=== PATIENT | male | born 1945 | race American Indian/Alaskan Native ===

== ENCOUNTER 2017-12-23 11:02 | Emergency (ER) | payer MEDICARE, OTHER ==
[2017-12-23 11:18] VITALS: BP 137/81
[2017-12-23] MEDS ORDERED: XYLOCAINE 1% MPF 5 mL ONE (13:59)
[2017-12-23] MEDS ORDERED: XYLOCAINE 1% MPF 5 mL INFILTRATI ONE (14:46)
[2017-12-23] MEDS ORDERED: XYLOCAINE 2% UROJET UR ONE (15:00)
--- NOTE | 2017-12-23 15:16 | Emergency Department Report ---
Abscess Boil HPI - HPI Chief Complaint: Skin/Abscess/Foreign Body Stated Complaint: BOIL Time Seen by Provider: 12/23/17 13:16 Duration: >1 Week (2 years) Location: Back (mid back) History: Yes Pain, Yes Previous History (had a boil a couple years prior in same area, drained by [facility]), No Fever, No Purulent Drainage, No Numbness, No Foreign Body, No Insect Bite HPI: This is a 72 y.o. male that presents with a painful abscess mid upper back for 2 years. He is being treated by dermatology at [facility]. They are doing injections to area, unsure of name. They told him it is an abscess but they can' t open it in the office. He have an appointment at the main [facility] on 01/06/18 for consultation to do an I&D. Patient reports he can't take another day of pain. It is red, painful, and swollen. Denies discharge, numbness/ tingling, fever, and puritis. Home Medications: Previous Rx's Medication Instructions Recorded Last Taken Type Sulfamethoxazole/Trimethoprim 1 each PO BID 10 Days #20 tablet 12/23/17 Unknown Rx [Bactrim DS TAB] Allergies/Adverse Reactions: Allergies Allergy/AdvReac Type Severity Reaction Status Date / Time codeine Allergy Unknown Verified 12/23/17 11:13 ED Review of Systems ROS: Stated complaint: BOIL Other details as noted in HPI Constitutional: denies: chills, fever, malaise Respiratory: denies: cough, shortness of breath, wheezing Cardiovascular: denies: chest pain, palpitations Gastrointestinal: denies: abdominal pain, nausea, diarrhea Musculoskeletal: denies: back pain, joint swelling, arthralgia Skin: other (abscess to mid back). denies: rash, lesions Neurological: denies: headache, weakness, paresthesias ED Past Medical Hx - Past Medical History Hx Diabetes: Yes Additional medical history: high cholesterol, chronic back, hip pain - Surgical History Past Surgical History?: No - Social History Smoking Status: Never Smoker Substance Use Type: None - Medications Home Medications: Home Medications Medication Instructions Recorded Confirmed Last Taken Type Sulfamethoxazole/Trimethoprim 1 each PO BID 10 Days #20 tablet 12/23/17 Unknown Rx [Bactrim DS TAB] ED Abscess Boil Physical Exam - Exam General: Vital signs noted. No distress. Alert and acting appropriately. Size: >5 cm Exam: Yes Tenderness, Yes Fluctuance, Yes Surrounding Cellulites/Erythema, Yes Normal Neurologic Exam, Yes Normal Circulation, No Lymphangitis, No Crepitation , No Heart Murmur I & D Note - I & D Note I & D Note: The area was prepared and draped in the usual, sterile manner. The site was anesthetized with 3 cc of 1% lidocaine w/o epinephrine. A linear incision along the local skin lines was made and the purulent material expressed. The abcess was explored thoroughly and sequestered pockets were opened. Bleeding was minimal. Packing: with iodoform. The patient tolerated the procedure well without complications. Standard post-procedure care is explained and return precautions are given. ED Course Vital Signs 12/23/17 11:13 Temperature 98.4 F Pulse Rate 89 Respiratory 16 Rate Blood Pressure 137/81 O2 Sat by Pulse 97 Oximetry Critical care attestation.: If time is entered above; I have spent that time in minutes in the direct care of this critically ill patient, excluding procedure time. ED Medical Decision Making - Medical Decision Making This is a 72 y.o. male presents with abscess to mid upper back for 2 years. Patient examined by me. 5-6 cm flatulence abscess, with cellulitis to surrounding area. Patient is non-toxic appearing and stable. Physical examination is susceptible of abscess with cellulites of back excluding scapular region. Performed I&D. Ordered culture, pending results. Discharged home for outpatient treatment with bactrim. Discussed ER care plan with patient. Patient agreed with plan. F/U with PCP. ED Disposition Clinical Impression: Abscess of upper back excluding scapular region Disposition: DC-01 TO HOME OR SELFCARE Is pt being admited?: No Does the pt Need Aspirin: No Condition: Stable Instructions: Abscess Incision and Drainage (ED), Abscess (ED) Additional Instructions: Complete bactrim DS for the full 10 days as prescribed. Return to ER in 3 days for removal of packing. Follow up with Primary Care Provider in 24-72. Prescriptions: Sulfamethoxazole/Trimethoprim [Bactrim DS TAB] 1 each PO BID 10 Days #20 tablet Referrals: [facility] [Outside] - 3-5 Days Wound Care & [facility] [Outside] - 3-5 Days Time of Disposition: 15:31 Print Language: CITIZ[place] OF [place]
== END 2017-12-23 16:01 | disposition home or self-care (01) ==
LOC: ED 11:02
DX: L02.212 Cutaneous abscess of back [any part, except buttock and flank] (principal); E11.9 Type 2 diabetes mellitus without complications; E78.00 Pure hypercholesterolemia, unspecified; G89.29 Other chronic pain
CPT/HCPCS: 87116

== ENCOUNTER 2017-12-26 06:52 | Emergency (ER) | payer MEDICARE ==
[2017-12-26 06:58] VITALS: BP 152/87
--- NOTE | 2017-12-26 08:18 | Emergency Department Report ---
- General Chief Complaint: Laceration/Recheck/Suture Stated Complaint: PACKING REMOVAL Source: patient, family Mode of arrival: Ambulatory Limitations: No Limitations - History of Present Illness Initial Comments: 72-year-old -[place] male comes in for repacking of his sebaceous wound on his back. Patient reports that he was here Tuesday and had to sebaceous abscess drained and packed. Patient reports that he is currently taking his Bactrim as prescribed. He reports no fever no chills reports that his change in his bandage daily. -: days(s) (3) Location: back - Related Data Previous Rx's Medication Instructions Recorded Last Taken Type Sulfamethoxazole/Trimethoprim 1 each PO BID 10 Days #20 tablet 12/23/17 Unknown Rx [Bactrim DS TAB] Allergies Allergy/AdvReac Type Severity Reaction Status Date / Time codeine Allergy Unknown Verified 12/23/17 11:13 ED Review of Systems ROS: Stated complaint: PACKING REMOVAL Other details as noted in HPI Constitutional: denies: chills, fever Eyes: denies: eye pain, eye discharge, vision change ENT: denies: ear pain, throat pain Respiratory: denies: cough, shortness of breath, wheezing Cardiovascular: denies: chest pain, palpitations Endocrine: no symptoms reported Gastrointestinal: denies: abdominal pain, nausea, diarrhea Genitourinary: denies: urgency, dysuria Musculoskeletal: denies: back pain, joint swelling, arthralgia Skin: denies: rash, lesions Neurological: denies: headache, weakness, paresthesias Psychiatric: denies: anxiety, depression Hematological/Lymphatic: denies: easy bleeding, easy bruising ED Past Medical Hx - Past Medical History Previous Medical History?: Yes Hx Diabetes: Yes Additional medical history: high cholesterol, chronic back, hip pain - Surgical History Past Surgical History?: Yes Additional Surgical History: D&C of abscess - Social History Smoking Status: Former Smoker Substance Use Type: None - Medications Home Medications: Home Medications Medication Instructions Recorded Confirmed Last Taken Type Sulfamethoxazole/Trimethoprim 1 each PO BID 10 Days #20 tablet 12/23/17 Unknown Rx [Bactrim DS TAB] ED Physical Exam - General Limitations: No Limitations - Respiratory Respiratory exam: Present: normal lung sounds bilaterally. Absent: respiratory distress - Cardiovascular Cardiovascular Exam: Present: regular rate, normal rhythm. Absent: systolic murmur, diastolic murmur, rubs, gallop - Neurological Exam Neurological exam: Present: alert, oriented X3 - Psychiatric Psychiatric exam: Present: normal affect, normal mood - Skin Skin exam: Present: warm, dry, intact, other (site is clean dry was able to remove the packing nonpurulent discharge on the packing. Able to replace xylophone one fourth about 2 feet.). Absent: erythema ED Course Vital Signs 12/26/17 12/26/17 06:54 06:55 Temperature 98.0 F 98 F Pulse Rate 86 92 H Respiratory 18 18 Rate Blood Pressure 152/87 152/87 O2 Sat by Pulse 97 97 Oximetry ED Medical Decision Making - Medical Decision Making Patient has been evaluated by this provider fast track. Was able to remove O packing and repacked the wound approximately 2 feet of packing material. I discussed the patient to continue with antibiotics as prescribed. I discussed with patient to follow-up in 3 days for packing removal healthy at that time we would not need to repack. Discussed with patient that healing will come from inside to out. Discussed with patient to follow up sooner if he presents with any fever chills nausea vomiting site becomes very erythematous swelling or purulent discharge patient verbalized understanding Critical care attestation.: If time is entered above; I have spent that time in minutes in the direct care of this critically ill patient, excluding procedure time. ED Disposition Clinical Impression: Encounter for wound re-check Disposition: DC-01 TO HOME OR SELFCARE Is pt being admited?: No Does the pt Need Aspirin: No Condition: Stable Additional Instructions: Continue with antibiotics as prescribed. Please change the bandage daily. Follow-up in 3 days for packing removal and recheck of wound. Please return sooner if you present with any fever chills nausea vomiting any purulent discharge. Referrals: PRIMARY CARE, [Primary Care Provider] - 3-5 Days
== END 2017-12-26 08:30 | disposition home or self-care (01) ==
LOC: ED 06:52
DX: Z48.01 Encounter for change or removal of surgical wound dressing (principal); E11.9 Type 2 diabetes mellitus without complications; E78.00 Pure hypercholesterolemia, unspecified; G89.29 Other chronic pain; Z87.891 Personal history of nicotine dependence; Z88.5 Allergy status to narcotic agent
CPT/HCPCS: 99283

== ENCOUNTER 2017-12-30 11:20 | Emergency (ER) | payer MEDICARE, OTHER ==
[2017-12-30 11:53] VITALS: BP 155/91
--- NOTE | 2017-12-30 15:08 | Emergency Department Report ---
Chief Complaint: Laceration/Recheck/Suture Stated Complaint: PACKING REMOVAL Time Seen by Provider: 12/30/17 13:46 - HPI History of Present Illness: Patient is a 72-year-old male who presents to ED for packing removal and wound check Pt denies any fever, chills or any other problems. Patient states he isn't taking his antibiotics and pain meds as prescribed. - ROS Review of Systems: Denies all of the symptoms - Exam Vital Signs: Vital Signs 12/30/17 11:48 Temperature 98.6 F Pulse Rate 94 H Blood Pressure 155/91 O2 Sat by Pulse 98 Oximetry Physical Exam: GENERAL: Alert and oriented x3, no apparent distress, Normal Gait, atraumatic. HEAD: Head is normocephalic and a-traumatic. LUNGS: Symetrical with respiration, No wheezing, no rales or crackles, CTAB. SKIN: Warm and dry, No lesions, No ulceration or induration present. wound location on upper mid back, no pus drainage seen MSE screening note: Focused history and physical exam performed. Due to findings the following was ordered: ED Medical Decision Making - Medical Decision Making 22-year-old male presents [id number] removal Packing was removed without any problems Wound was flushed out with 60 mL of normal saline Steri-Strips were applied to wound as it was gaping open. Light dressing applied to wound Wound instructions is given to patient. states he has an appointment at the [place] to see the mixer operator hot metal on January 06. I discussed the patient to keep this appointment ED Disposition for MSE Clinical Impression: Encounter for wound re-check Disposition: DC-01 TO HOME OR SELFCARE Is pt being admited?: No Does the pt Need Aspirin: No Condition: Stable Instructions: Acute Wound Care (ED) Additional Instructions: Make sure to follow up with the primary care physician as discussed. Take all your medications as you've been prescribed. If you have any worsening symptoms or develop new symptoms please return to ED immediately. Referrals: GEOFFREY GOMEZ MD [Primary Care Provider] - 3-5 Days Forms: Accompanied Note, Work/School Release Form(ED) Time of Disposition: 15:08
== END 2017-12-30 15:15 | disposition home or self-care (01) ==
LOC: ED 11:20
DX: Z48.00 Encounter for change or removal of nonsurgical wound dressing (principal); Z88.6 Allergy status to analgesic agent
CPT/HCPCS: 99282

== ENCOUNTER 2022-04-09 13:55 | Emergency (ER) | payer MEDICARE ==
--- NOTE | 2022-04-09 15:26 | Emergency Department Report ---
ED Altered Mental Status HPI - General Chief Complaint: Altered Mental Status Stated Complaint: AMS Time Seen by Provider: 04/09/22 15:09 Source: EMS Mode of arrival: Stretcher Limitations: Altered Mental Status - History of Present Illness Initial Comments: 77 yo Roscoe M brought in by EMS with concern for AMS which patient denies. Pt reports that his was having a boyfriend over and they were using his credit card without his authorization. He ends up cancelling the credit card and believed the was not happy about that action. The on the other hand reports that time to time patient get confused but it was coming too frequent at this time. According to patient's that was spoken to by his bedside nurse who told her that today's episode happened while they were going to the restaurant and at the post office. He just randomly became confused. No other modifying or associated factors reported. - Related Data Previous Rx's Medication Instructions Recorded Last Taken Type Sulfamethoxazole/Trimethoprim 1 each PO BID 10 Days #20 tablet 12/23/17 Unknown Rx [Bactrim DS TAB] Allergies Allergy/AdvReac Type Severity Reaction Status Date / Time codeine Allergy Unknown Verified 04/09/22 14:16 ED Review of Systems ROS: Stated complaint: AMS Other details as noted in HPI Comment: All other systems reviewed and negative Neurological: other (AMS and confusion) ED Past Medical Hx - Past Medical History Previous Medical History?: Yes Hx Hypertension: Yes Hx Diabetes: Yes Additional medical history: high cholesterol, chronic back, hip pain, glaucoma - Surgical History Additional Surgical History: D&C of abscess - Social History Smoking Status: Never Smoker - Medications Home Medications: Home Medications Medication Instructions Recorded Confirmed Last Taken Type Sulfamethoxazole/Trimethoprim 1 each PO BID 10 Days #20 tablet 12/23/17 Unknown Rx [Bactrim DS TAB] ED Physical Exam - General Limitations: Altered Mental Status General appearance: alert, in no apparent distress - Head Head exam: Present: normal inspection - Eye Eye exam: Present: normal appearance Pupils: Present: normal accommodation - ENT ENT exam: Present: normal exam, normal orophraynx, mucous membranes dry - Neck Neck exam: Present: normal inspection, full ROM. Absent: tenderness - Respiratory Respiratory exam: Present: normal lung sounds bilaterally. Absent: respiratory distress, accessory muscle use - Cardiovascular Cardiovascular Exam: Present: regular rate, normal rhythm, normal heart sounds - GI/Abdominal GI/Abdominal exam: Present: soft, normal bowel sounds. Absent: distended, tend erness - Extremities Exam Extremities exam: Present: normal inspection, full ROM, normal capillary refill. Absent: tenderness - Back Exam Back exam: Present: normal inspection - Neurological Exam Neurological exam: Present: alert, oriented X3 - Psychiatric Psychiatric exam: Present: normal affect, normal mood - Skin Skin exam: Present: warm, normal color ED Course Vital Signs 04/09/22 04/09/22 04/09/22 14:11 14:25 14:30 Temperature 98.0 F Pulse Rate 126 H 96 H Respiratory 16 16 Rate Blood Pressure 182/93 Blood Pressure 178/100 [Left] O2 Sat by Pulse 95 98 97 Oximetry 04/09/22 04/09/22 04/09/22 14:46 15:00 15:10 Temperature Pulse Rate 107 H 91 H Respiratory 17 18 Rate Blood Pressure 182/93 195/101 Blood Pressure [Left] O2 Sat by Pulse 100 97 100 Oximetry 04/09/22 04/09/22 04/09/22 15:16 15:30 15:46 Temperature Pulse Rate 89 92 H 91 H Respiratory 17 16 11 L Rate Blood Pressure 182/93 158/87 158/87 Blood Pressure [Left] O2 Sat by Pulse 97 98 98 Oximetry 04/09/22 04/09/22 04/09/22 16:40 16:46 17:00 Temperature Pulse Rate 95 H 92 H 79 Respiratory 20 13 17 Rate Blood Pressure Blood Pressure [Left] O2 Sat by Pulse Oximetry 04/09/22 04/09/22 04/09/22 17:16 17:30 17:46 Temperature Pulse Rate 77 80 77 Respiratory 14 9 L 13 Rate Blood Pressure 158/87 158/87 158/87 Blood Pressure [Left] O2 Sat by Pulse Oximetry 04/09/22 18:00 Temperature Pulse Rate Respiratory 11 L Rate Blood Pressure 158/87 Blood Pressure [Left] O2 Sat by Pulse Oximetry - Reevaluation(s) Reevaluation #1: 04/09/22 15:27 here with AMS but noted with without any confusion at this time-- however r eports some intermittent confusion - which could be delirium but not limited to microvascular angiopathy, so to rule those out will order routine CBC, CMP and UA with CT head -- will also consult the case management for disposition. Reevaluation #2: 04/09/22 21:[address] Bernard while waiting for Mental health evaluation at 2100 - Lab Data Result diagrams: 04/09/22 15:22 04/09/22 15:22 Lab Results 04/09/22 04/09/22 04/09/22 Range/Units 15:22 15:22 15:22 WBC 9.1 (4.5-11.0) K/mm3 RBC 5.27 H (3.65-5.03) M/mm3 Hgb 14.7 (11.8-15.2) gm/dl Hct 43.0 (35.5-45.6) % MCV 82 L (84-94) fl MCH 28 (28-32) pg MCHC 34 (32-34) % RDW 15.5 H (13.2-15.2) % Plt Count 185 (140-440) K/mm3 Lymph % (Auto) 9.3 L (13.4-35.0) % [place] % (Auto) 3.9 (0.0-7.3) % Eos % (Auto) 0.2 (0.0-4.3) % Baso % (Auto) 0.1 (0.0-1.8) % Lymph # (Auto) 0.8 L (1.2-5.4) K/mm3 [place] # (Auto) 0.4 (0.0-0.8) K/mm3 Eos # (Auto) 0.0 (0.0-0.4) K/mm3 Baso # (Auto) 0.0 (0.0-0.1) K/mm3 Seg Neutrophils % 86.5 H (40.0-70.0) % Seg Neutrophils # 7.9 H (1.8-7.7) K/mm3 PT 13.7 (12.2-14.9) Sec. INR 0.95 (0.87-1.13) APTT 37.5 H (24.2-36.6) Sec. Sodium 141 (137-145) mmol/L Potassium 4.4 (3.6-5.0) mmol/L Chloride 104.3 (98-107) mmol/L Carbon Dioxide 28 (22-30) mmol/L Anion Gap 13 mmol/L BUN 16 (9-20) mg/dL Creatinine 1.1 (0.8-1.3) mg/dL Estimated GFR > 60 ml/min BUN/Creatinine Ratio 15 % Glucose 112 H (75-100) mg/dL Lactic Acid (0.7-2.0) mmol/L Calcium 9.8 (8.4-10.2) mg/dL Total Bilirubin 0.50 (0.1-1.2) mg/dL AST 15 (5-40) units/L ALT 17 (7-56) units/L Alkaline Phosphatase 65 (35-129) units/L Ammonia (25-60) umol/L Total Protein 7.1 (6.3-8.2) g/dL Albumin 4.5 (3.9-5) g/dL Albumin/Globulin Ratio 1.7 % TSH (0.270-4.200) mlU/mL Free T4 (0.76-1.46) ng/dL Salicylates (2.8-20.0) mg/dL Urine Opiates Screen Urine Methadone Screen Acetaminophen (10.0-30.0) ug/mL Ur Barbiturates Screen Ur Phencyclidine Scrn Ur Amphetamines Screen U Benzodiazepines Scrn Urine Cocaine Screen U Marijuana (THC) Screen Drugs of Abuse Note 04/09/22 04/09/22 04/09/22 Range/Units 15:22 15:22 15:22 WBC (4.5-11.0) K/mm3 RBC (3.65-5.03) M/mm3 Hgb (11.8-15.2) gm/dl Hct (35.5-45.6) % MCV (84-94) fl MCH (28-32) pg MCHC (32-34) % RDW (13.2-15.2) % Plt Count (140-440) K/mm3 Lymph % (Auto) (13.4-35.0) % [place] % (Auto) (0.0-7.3) % Eos % (Auto) (0.0-4.3) % Baso % (Auto) (0.0-1.8) % Lymph # (Auto) (1.2-5.4) K/mm3 [place] # (Auto) (0.0-0.8) K/mm3 Eos # (Auto) (0.0-0.4) K/mm3 Baso # (Auto) (0.0-0.1) K/mm3 Seg Neutrophils % (40.0-70.0) % Seg Neutrophils # (1.8-7.7) K/mm3 PT (12.2-14.9) Sec. INR (0.87-1.13) APTT (24.2-36.6) Sec. Sodium (137-145) mmol/L Potassium (3.6-5.0) mmol/L Chloride (98-107) mmol/L Carbon Dioxide (22-30) mmol/L Anion Gap mmol/L BUN (9-20) mg/dL Creatinine (0.8-1.3) mg/dL Estimated GFR ml/min BUN/Creatinine Ratio % Glucose (75-100) mg/dL Lactic Acid 1.70 (0.7-2.0) mmol/L Calcium (8.4-10.2) mg/dL Total Bilirubin (0.1-1.2) mg/dL AST (5-40) units/L ALT (7-56) units/L Alkaline Phosphatase (35-129) units/L Ammonia (25-60) umol/L Total Protein (6.3-8.2) g/dL Albumin (3.9-5) g/dL Albumin/Globulin Ratio % TSH (0.270-4.200) mlU/mL Free T4 (0.76-1.46) ng/dL Salicylates < 0.3 L (2.8-20.0) mg/dL Urine Opiates Screen Urine Methadone Screen Acetaminophen 5.0 L (10.0-30.0) ug/mL Ur Barbiturates Screen Ur Phencyclidine Scrn Ur Amphetamines Screen U Benzodiazepines Scrn Urine Cocaine Screen U Marijuana (THC) Screen Drugs of Abuse Note 04/09/22 04/09/22 04/09/22 Range/Units 15:44 19:33 Unknown WBC (4.5-11.0) K/mm3 RBC (3.65-5.03) M/mm3 Hgb (11.8-15.2) gm/dl Hct (35.5-45.6) % MCV (84-94) fl MCH (28-32) pg MCHC (32-34) % RDW (13.2-15.2) % Plt Count (140-440) K/mm3 Lymph % (Auto) (13.4-35.0) % [place] % (Auto) (0.0-7.3) % Eos % (Auto) (0.0-4.3) % Baso % (Auto) (0.0-1.8) % Lymph # (Auto) (1.2-5.4) K/mm3 [place] # (Auto) (0.0-0.8) K/mm3 Eos # (Auto) (0.0-0.4) K/mm3 Baso # (Auto) (0.0-0.1) K/mm3 Seg Neutrophils % (40.0-70.0) % Seg Neutrophils # (1.8-7.7) K/mm3 PT (12.2-14.9) Sec. INR (0.87-1.13) APTT (24.2-36.6) Sec. Sodium (137-145) mmol/L Potassium (3.6-5.0) mmol/L Chloride (98-107) mmol/L Carbon Dioxide (22-30) mmol/L Anion Gap mmol/L BUN (9-20) mg/dL Creatinine (0.8-1.3) mg/dL Estimated GFR ml/min BUN/Creatinine Ratio % Glucose (75-100) mg/dL Lactic Acid (0.7-2.0) mmol/L Calcium (8.4-10.2) mg/dL Total Bilirubin (0.1-1.2) mg/dL AST (5-40) units/L ALT (7-56) units/L Alkaline Phosphatase (35-129) units/L Ammonia 26.0 (25-60) umol/L Total Protein (6.3-8.2) g/dL Albumin (3.9-5) g/dL Albumin/Globulin Ratio % TSH 2.070 (0.270-4.200) mlU/mL Free T4 1.13 (0.76-1.46) ng/dL Salicylates (2.8-20.0) mg/dL Urine Opiates Screen Negative Urine Methadone Screen Negative Acetaminophen (10.0-30.0) ug/mL Ur Barbiturates Screen Negative Ur Phencyclidine Scrn Negative Ur Amphetamines Screen Negative U Benzodiazepines Scrn Negative Urine Cocaine Screen Negative U Marijuana (THC) Screen Negative Drugs of Abuse Note Disclamer Critical care attestation.: If time is entered above; I have spent that time in minutes in the direct care of this critically ill patient, excluding procedure time. ED Disposition Clinical Impression: AMS (altered mental status) Qualifiers: Altered mental status type: unspecified Qualified Code(s): R41.82 - Altered mental status, unspecified Disposition: 30 STILL A PATIENT Is pt being admited?: No Does the pt Need Aspirin: No Condition: Stable
[2022-04-09 15:53] LABS: Basophils % (Auto) 0.1 % (0.0-1.8); Eosinophils % (Auto) 0.2 % (0.0-4.3); Hemoglobin 14.7 gm/dl (11.8-15.2); Lymphocytes # (Auto) 0.8 K/mm3 (1.2-5.4); Lymphocytes % (Auto) 9.3 % (13.4-35.0); Mean Corpuscular HGB Conc 34 % (32-34); Mean Corpuscular Volume 82 fl (84-94); Monocytes # (Auto) 0.4 K/mm3 (0.0-0.8); Monocytes % (Auto) 3.9 % (0.0-7.3); Platelet Count 185 K/mm3 (140-440); Red Blood Count 5.27 M/mm3 (3.65-5.03); Red Cell Distribution Width 15.5 % (13.2-15.2)
[2022-04-09 16:04] LABS: INR 0.95 (0.87-1.13)
[2022-04-09 16:05] LABS: Partial Thromboplastin Time 37.5 Sec. (24.2-36.6)
[2022-04-09 16:07] LABS: Alanine Aminotransferase 17 units/L (7-56); Albumin 4.5 g/dL (3.9-5); BUN/Creatinine Ratio 15; Blood Urea Nitrogen 16 mg/dL (9-20); Calcium 9.8 mg/dL (8.4-10.2); Hemolysis Index 2
--- NOTE | 2022-04-09 16:17 | Cat Scan Report ---
CT HEAD WITHOUT CONTRAST INDICATION / CLINICAL INFORMATION: Altered Mental Status. TECHNIQUE: All CT scans at this location are performed using CT dose reduction for ALARA by means of automated e xposure control. COMPARISON: None available. FINDINGS: HEMORRHAGE: No evidence of intracranial hemorrhage or extra-axial fluid collection. EXTRA-AXIAL SPACES: Cortical sulci and sylvian fissures are enlarged reflecting a degree of parenchym al volume loss which is within normal limits for the patient's age of 77 years. Basilar cisterns have an unremarkable appearance. VENTRICULAR SYSTEM: The third and lateral ventricles are enlarged reflecting presence of age related parenchymal volume loss. CEREBRAL PARENCHYMA: Periventricular and deep white matter lucency is observed. This is probably seco ndary to microvascular ischemic change. There is no indication of recent infarction. No areas of ence phalomalacia are identified. MIDLINE SHIFT OR HERNIATION: There is no mass effect. CEREBELLUM / BRAINSTEM: Brainstem has an unremarkable appearance. Age related cerebellar atrophy is n oted. MIDLINE STRUCTURES:Pituitary gland has an unremarkable appearance. No abnormalities are seen in the p ineal region. INTRACRANIAL VESSELS:Calcified atherosclerotic plaque is present along the course of the cavernous se gments of both internal carotid arteries. Similar findings are seen at the distal vertebral arteries. CRANIOCERVICAL JUNCTION:No significant abnormality. ORBITS: visualized portions of the orbits have an unremarkable appearance. SOFT TISSUES of HEAD: No significant abnormality. CALVARIUM: Evaluation of bone windows reveals no abnormalities. PARANASAL SINUSES / MASTOID AIR CELLS: Mucosal thickening is present at the base of the right maxilla ry sinus. Paranasal sinuses are otherwise free from inflammatory mucosal disease. Normal and symmetri maurice pneumatization of mastoid air cells is observed. IMPRESSION: 1. Age-related involutional changes of parenchymal volume loss and microvascular ischemia. 2. No acute intracranial abnormality. Signer Name: Lincoln Emerson MD Signed: 04/09/2022 4:12 PM Workstation Name: [id number]
[2022-04-09 18:38] LABS: Free T4 (Free Thyroxine) 1.13 ng/dL (0.76-1.46)
[2022-04-09 18:38] LABS: Amphetamine Screen,Urine Negative; Benzodiazepines Screen,Urine Negative; Cannabinoid Screen,Urine Negative; Cocaine Screen,Urine Negative; Methadone Screen,Urine Negative; Opiate Screen,Urine Negative
[2022-04-10 08:26] LABS: Bilirubin,Urine NEG (Negative); Blood,Urine NEG (Negative); Color,Urine Yellow (Yellow); Urobilinogen,Urine < 2.0 mg/dL (<2.0)
[2022-04-10 08:30] LABS: Bacteria,Urine 1+ /HPF (Negative); Mucus,Urine 3+ /HPF
--- NOTE | 2022-04-10 10:30 | Event Note ---
Date: 04/10/22 (@ 10:25 am) CTBS 2/2 patient 's reporting patient had a fall last night in the ER. Reportedly, the RN gave that in report to the oncoming nurse. However, no docvtor went in to see the patient. This happened long before my shift. Seeing pastient now after multiple emergent cases in the ER that took priority as patient was decriptively stable. Patient reporteldy here for AMS and was placed in psych without a UA being done or UTI ruled out as an organic cause. O: Gen: awake, alert, confused Head: normocephalic, atraumatic Ext: abrasion over L elbow and anterior L knee; full ROM without deformity in all extremities; pelvis stable Neuro: GCS 14/15 ([id number]); no gross CN palsiers; moving all extremities equally A: - possible fall - AMS: need to additionally rule out UTI P: - will order UA, CT head, CT cervical spine, XR of L elbow, L knee, bilateral hips and pelvis - Dr. Crow (Day 2 EM physician responsible for held psych patients) to follow patient @ 11 am once he gets here
--- NOTE | 2022-04-10 11:23 | Electrocardiograph Report ---
[facility] Test Date: 2022-04-09 Test Time: 15:40:36 Pat Name: GEOFFREY MACEDO Department: Room: Gender: M Research Group Director: [birth year] : 1945 Requested By: ELVI SANTOS Order Number: [id number] Reading MD: Dawson Marie Measurements Intervals [place] Rate: 87 P: 66 [place]: 156 QRS: -82 QRSD: 73 T: 49 QT: 368 QTc: 442 Interpretive Statements Sinus rhythm Left anterior fascicular block No previous ECG available for comparison Electronically Signed On 04-10-2022 11:22:40 EDT by Dawson Marie
--- NOTE | 2022-04-10 11:23 | XRay Report ---
Left knee-3 views INDICATION: pain/fall. COMPARISON: None available. IMPRESSION: No acute osseous abnormality. Normal alignment. No significant DJD. Mild enthesopathic change along the extensor mechanism. Soft tissues are unremarkable. Signer Name: Kei Wei MD Signed: 04/10/2022 11:19 AM Workstation Name: [id number]
--- NOTE | 2022-04-10 11:24 | XRay Report ---
Left elbow-3 views INDICATION: pain/fall. COMPARISON: None available. IMPRESSION: No acute osseous abnormality. Normal alignment. No significant DJD. Bulky enthesopathic change along the olecranon. Soft tissues are unremarkable. Signer Name: Kei Wei MD Signed: 04/10/2022 11:19 AM Workstation Name: [id number]
--- NOTE | 2022-04-10 11:25 | XRay Report ---
Bilateral hips-3 total views INDICATION: fall; pain. COMPARISON: None available. IMPRESSION: No acute osseous abnormality. Normal alignment. 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 The left SI joint is poorly seen and ther e may be partial ankylosis. Soft tissues are unremarkable. Signer Name: Kei Wei MD Signed: 04/10/2022 11:20 AM Workstation Name: [id number]
--- NOTE | 2022-04-10 13:04 | Event Note ---
Date: 04/10/22 Patient states that home and his have reconciled. Reviewed medical imaging that was ordered previously patient has no acute osseous injury or no traumatic injury. Currently waiting for psychiatry to clear patient.
--- NOTE | 2022-04-10 13:15 | Consultation ---
History of Present Illness - Reason for Consult Consult date: 04/10/22 Reason for consult: AMS - History of Present Psychiatric Illness HPI: 77 yo Mchenry M brought in by EMS with concern for AMS which patient denies. Pt reports that his was having a boyfriend over and they were using his credit card without his authorization. He ends up cancelling the credit card and believed the was not happy about that action. The on the other hand reports that time to time patient get confused but it was coming too frequent at this time. According to patient's that was spoken to by his bedside nurse who told her that today's episode happened while they were going to the restaurant and at the post office. He just randomly became confused. No other modifying or associated factors reported. The patient was seen today. He presented to the ER for concern of AMS. The patient states he is fine, but he is rambling at times, and appears to be delusional. He is difficult to follow at times. He says he was brought by the police because he had an incident with his family. He says they were trying to get him to get in the car but he didn't want to get in. He says he made it across the street and had the people in the store to call the publicity person. He says he thought his and his friend were having an affair. He then starts telling me he has guns in his trunk because he goes to the shooting range. I ask him why did he want me to know that information. He says "I was just telling you." I ask the patient did he have any plans to use one of the guns on himself or his spouse and his friend. He replies "no, I thought they might use them on me." He says "I didn't feel safe at home with the guns." He then starts telling me that he has money in the house. The patient is rambling about meeting his in the parking garage of the hospital. He says "I talked to my last night in the parking garage of the hospital and we got it straight." I told the patient he did not leave the hospital. He replies "oh yea they told me don't leave." PAST PSYCHIATRIC HISTORY: Diagnoses: Denies Suicide attempts or Self-harm behavior: Denies Prior psychiatric hospitalizations: Denies Substance Abuse history: Denies Previous psychiatric medications tried: Denies Outpatient treatment:Unknown PAST MEDICAL HISTORY: Family Psychiatric History: None reported or documented SOCIAL HISTORY Marital Status: Living Arrangements: with spouse Employment Status: Retired Access to guns/weapons: Yes Education: High school History of Abuse:Denies Legal History: Denies REVIEW OF SYSTEMS Constitutional: Negative for weight loss ENT: Negative for stridor Respiratory: Negative for cough or hemoptysis All other systems reviewed and are negative MENTAL STATUS EXAMINATION General Appearance and Behavior: Age appropriate, wearing appropriate clothes, cooperative, polite with questioning, good eye contact Cooperation: cooperative Psychomotor Behavior: Psychomotor normal Mood: fine Affect and affective range: congruent with stated mood Thought Process: circumstantial Thought Content: Reality oriented Speech: Normal volume, Regular rate and rhythm Suicidal Ideation: Denies Homicidal Ideation: Denies Hallucination: Denies Delusions: Yes Impulse Control: Limited Insight and Judgment: Limited Memory: limited Attention:attentive Orientation: Alert and oriented Diagnoses: Delusional Disorder Treatment Plan 1013 Olanzapine 2.5mg po daily Sitter: Per primary Medical: Per primary Disposition: Recommend acute psychiatric inpatient treatment Will follow. Thanks Case staffed with Dr. Almeida Medications and Allergies Allergies Allergy/AdvReac Type Severity Reaction Status Date / Time codeine Allergy Unknown Verified 04/09/22 14:16 Home Medications Medication Instructions Recorded Confirmed Last Taken Type Lisinopril 10 mg PO DAILY 04/10/22 04/10/22 Unknown History metFORMIN 500 mg PO DAILY 04/10/22 04/10/22 Unknown History Mental Status Exam - Vital signs Last Vital Signs Temp 98.0 F 04/09/22 14:11 Pulse 83 04/10/22 11:10 Resp 16 04/10/22 11:10 BP 163/86 04/10/22 11:10 Pulse Ox 96 04/10/22 11:10 Results Result Diagrams: 04/09/22 15:22 04/09/22 15:22 Abnormal lab results 04/09/22 04/09/22 04/09/22 Range/Units 15:22 15:22 15:22 RBC 5.27 H (3.65-5.03) M/mm3 MCV 82 L (84-94) fl RDW 15.5 H (13.2-15.2) % Lymph % (Auto) 9.3 L (13.4-35.0) % Lymph # (Auto) 0.8 L (1.2-5.4) K/mm3 Seg Neutrophils % 86.5 H (40.0-70.0) % Seg Neutrophils # 7.9 H (1.8-7.7) K/mm3 APTT 37.5 H (24.2-36.6) Sec. Glucose 112 H (75-100) mg/dL Salicylates (2.8-20.0) mg/dL Acetaminophen (10.0-30.0) ug/mL 04/09/22 04/09/22 Range/Units 15:22 15:22 RBC (3.65-5.03) M/mm3 MCV (84-94) fl RDW (13.2-15.2) % Lymph % (Auto) (13.4-35.0) % Lymph # (Auto) (1.2-5.4) K/mm3 Seg Neutrophils % (40.0-70.0) % Seg Neutrophils # (1.8-7.7) K/mm3 APTT (24.2-36.6) Sec. Glucose (75-100) mg/dL Salicylates < 0.3 L (2.8-20.0) mg/dL Acetaminophen 5.0 L (10.0-30.0) ug/mL All other labs normal.
--- NOTE | 2022-04-10 13:20 | Cat Scan Report ---
CT HEAD WITHOUT CONTRAST INDICATION / CLINICAL INFORMATION: blunt head injury. TECHNIQUE: All CT scans at this location are performed using CT dose reduction for ALARA by means of automated e xposure control. COMPARISON: 04/09/2022 FINDINGS: There are periventricular and central white matter areas of low-attenuation in the periventricular an d central white matter. Ventricles are normal in size without midline shift or mass effect. No extra- axial fluid collection is seen. Visualized sinuses show mild right maxillary sinus disease. No acute fracture is identified. Mild diffuse cerebral atrophy. Visualized orbits appear normal. ADDITIONAL FINDINGS: None. IMPRESSION: 1. Diffuse periventricular and central white matter areas of low-attenuation suggesting microvascular change. Diffuse cerebral atrophy. No acute hemorrhage. 2. Right maxillary sinus disease. Signer Name: Rodrigue Maldonado MD Signed: 04/10/2022 1:16 PM Workstation Name: [id number]
--- NOTE | 2022-04-10 13:22 | Cat Scan Report ---
CT cervical spine wo con INDICATION / CLINICAL INFORMATION: blunt head injury. TECHNIQUE: Axial, coronal and sagittal images All CT scans at this location are performed using CT dose reductio n for ALARA by means of automated exposure control. COMPARISON: None available. FINDINGS: Discogenic degenerative changes seen throughout spine. Endplate changes and anterior posterior disc o steophytes throughout spine. No prevertebral soft tissue swelling is seen. Facets appear well aligned . Disc osteophytes with neuroforaminal narrowing suggested throughout the cervical spine. Skull base appears normal. Occipital condyles appear intact IMPRESSION: 1. No acute fractures seen. Discogenic degenerative change with anterior posterior disc osteophytes t hroughout cervical spine. Signer Name: Rodrigue Maldonado MD Signed: 04/10/2022 1:17 PM Workstation Name: [id number]
[2022-04-10] MEDS ORDERED: HALOPERIDOL LACTATE 5 MG/1 ML INJ IM ONE (13:53)
[2022-04-10] MEDS ORDERED: LORazepam 2 MG/ML VIAL IM ONE (14:00)
[2022-04-10 18:41] VITALS: BP 162/83
== END 2022-04-10 22:53 | disposition still patient (30) ==
LOC: ED 13:55
DX: R41.82 Altered mental status, unspecified (principal); Z20.822 Contact with and (suspected) exposure to COVID-19
CPT/HCPCS: 36415; 70450; 72125; 73070; 73521; 73562; 80053; 80307; 81001; 82140; 84439; 84443; 85025; 85610; 85730; 93005; 96372; 99285; J1630; J2060; U0003; 80320; G0480